=== PATIENT | female | born 1950 | race African-American/Black ===

== ENCOUNTER 2017-09-25 18:45 | Emergency (ER) | payer OTHER ==
[2017-09-25] MEDS ORDERED: TETANUS & DIPHTHERIA TOX,ADULT 0.5 ML VIAL ONE (19:35)
--- NOTE | 2017-09-25 20:14 | RAD REPORT ---
EXAM DESCRIPTION: CT - Head C Spine Mpr Wo Con - 09/25/2017 7:57 pm CLINICAL HISTORY: Head and neck injury status post fall. Head and neck pain COMPARISON: None. TECHNIQUE: Computed axial tomography of the head and cervical spine was obtained. Sagittal and coronal reconstruction was performed. All CT scans are performed using dose optimization technique as appropriate and may include automated exposure control or mA/KV adjustment according to patient size. FINDINGS: An intracranial bleed is not seen. The ventricles are normal in caliber. An extra-axial fl uid collection is not noted.Fluid within the visualized sinuses and mastoids is not seen A cervical fracture is not visualized. No dislocation is noted. 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 Moderate left foraminal stenosis is present at C4-5, C5-6 and C6-7 IMPRESSION: No acute intracranial abnormality is seen. A cervical fracture is not visualized. If the patient continues to have symptoms to suggest intracra nial /spinal cord pathology then MRI would be recommended
--- NOTE | 2017-09-25 20:15 | RAD REPORT ---
EXAM DESCRIPTION: RAD - Pelvis - 09/25/2017 7:46 pm CLINICAL HISTORY: Pelvic pain status post injury FINDINGS: No fracture or dislocation is seen. The bones appear osteoporotic If the patient continues to have symptoms to suggest an occult fracture then MRI would be recommended
--- NOTE | 2017-09-25 20:17 | RAD REPORT ---
EXAM DESCRIPTION: RAD - Knee Left 3 View - 09/25/2017 7:49 pm CLINICAL HISTORY: Left knee pain status post injury FINDINGS: No fracture or dislocation is seen. Chondrocalcinosis is present
--- NOTE | 2017-09-25 20:23 | EDPHYS ---
Physician Documentation [facility] Name: Angelita Babin Age: 67 yrs Sex: Female : 1950 Arrival Date: 09/25/2017 Time: 18:46 Bed 19 Private MD: Out, [facility] ED Physician Geovani Waddell HPI: 09/25 20:00 This 67 yrs old Black Female presents to ER via Ambulatory with complaints of Fall gs Injury. 20:00 Details of fall: The patient fell from an upright position, while walking. Onset: The gs symptoms/episode began/occurred acutely, just prior to arrival. Associated injuries: The patient sustained injury to the head, laceration, 2 cm(s), of the lower lip inner. Associated injuries: The patient sustained injury to the head, abrasion, left leg. Severity of symptoms: At their worst the symptoms were moderate. The patient has not experienced similar symptoms in the past. Historical: - Allergies: 18:58 Ampicillin; hb - Home Meds: 18:58 None [Active]; hb - PMHx: 18:58 None; hb - Immunization history:: Adult Immunizations up to date. - Social history:: Smoking status: Patient/guardian denies using tobacco. - Ebola Screening: : No symptoms or risks identified at this time. ROS: 20:00 All other systems are negative. gs 20:00 Neuro: Positive for loss of consciousness. gs Exam: 20:00 Eyes: Pupils equal round and reactive to light, extra-ocular motions intact. Lids and gs lashes normal. Conjunctiva and sclera are non-icteric and not injected. Cornea within normal limits. Periorbital areas with no swelling, redness, or edema. ENT: Nares patent. No nasal discharge, no septal abnormalities noted. Tympanic membranes are normal and external auditory canals are clear. Oropharynx with no redness, swelling, or masses, exudates, or evidence of obstruction, uvula midline. Mucous membranes moist. Neck: Trachea midline, no thyromegaly or masses palpated, and no cervical lymphadenopathy. Supple, full range of motion without nuchal rigidity, or vertebral point tenderness. No Meningismus. Chest/axilla: Normal chest wall appearance and motion. Nontender with no deformity. No lesions are appreciated. Cardiovascular: Regular rate and rhythm with a normal S1 and S2. No gallops, murmurs, or rubs. Normal PMI, no JVD. No pulse deficits. Respiratory: Lungs have equal breath sounds bilaterally, clear to auscultation and percussion. No rales, rhonchi or wheezes noted. No increased work of breathing, no retractions or nasal flaring. Abdomen/GI: Soft, non-tender, with normal bowel sounds. No distension or tympany. No guarding or rebound. No evidence of tenderness throughout. Skin: Warm, dry with normal turgor. Normal color with no rashes, no lesions, and no evidence of cellulitis. Neuro: Awake and alert, GCS 15, oriented to person, place, time, and situation. Cranial nerves II-XII grossly intact. Motor strength 5/5 in all extremities. Sensory grossly intact. Cerebellar exam normal. Normal gait. 20:00 Constitutional: The patient appears alert, awake. 20:00 Head/face: Noted is abrasion(s), that are mild, of the chin, a laceration(s), that is superficial, 2 cm(s), of the lower lip inner. 20:00 Musculoskeletal/extremity: ROM: limited active range of motion due to pain, limited passive range of motion due to pain, Circulation is intact in all extremities. Joints: the left hip and left knee displays tenderness. Vital Signs: 18:56 BP 111 / 77; Pulse 70; Resp 16; Temp 97.7; Pulse Ox 100% on R/A; Weight 98.43 kg; hb Height 5 ft. 7 in. (170.18 cm); Pain 10/10; 20:51 BP 119 / 66; Pulse 78; Resp 16 S; Pulse Ox 100% on R/A; jd3 18:56 Body Mass Index 33.99 (98.43 kg, 170.18 cm) hb [place] Coma Score: 18:56 Eye Response: spontaneous(4). Verbal Response: oriented(5). Motor Response: obeys hb commands(6). Total: 15. Trauma Score (Adult): 18:56 Eye Response: spontaneous(1); Verbal Response: oriented(1); Motor Response: obeys hb commands(2); Systolic BP: > 89 mm Hg(4); Respiratory Rate: 10 to 29 per min(4); Ke Score: 15; Trauma Score: 12 MDM: 19:26 Patient medically screened. 20:20 Differential diagnosis: contusion, fracture, laceration. Data reviewed: vital signs, nurses notes, radiologic studies, CT scan, plain films. Response to treatment: the patient's symptoms have mildly improved after treatment, and as a result, I will discharge patient. 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 Exp: jd3 11/23/2019. Lot #: [id number]. } Route: IM; Site: left deltoid; 20:20 Follow up: Response: No adverse reaction jd3 Disposition: 09/25/17 20:22 Discharged to Home. Impression: Concussion, Laceration without foreign body of other part of head, Abrasion of knee, Sprain of unspecified site of knee. - Condition is Stable. - Discharge Instructions: Laceration Care, Adult, [id number], Concussion, Adult, [id number]. - Prescriptions for Tylenol- Codeine #4 300-60 mg Oral Tablet - take 1 tablet by ORAL route every 6 hours As needed; 6 tablet. - Medication Reconciliation Form, Thank You Letter, Antibiotic Education, Prescription Opioid Use form. - Follow up: Private Physician; When: 2 - 3 days; Reason: Re-evaluation by your physician. Signatures: Dispatcher [employer] EDRI Anne Mac RN RN hb Starr, Gregory, MD MD Darius Webster RN RN jd3 Corrections: (The following items were deleted from the chart) 20:52 20:22 09/25/2017 20:22 Discharged to Home. Impression: Concussion; Laceration without jd3 foreign body of other part of head; Abrasion of knee; Sprain of unspecified site of knee. Condition is Stable. Forms are Medication Reconciliation Form, Thank You Letter, Antibiotic Education, Prescription Opioid Use. Follow up: Private Physician; When: 2 - 3 days; Reason: Re-evaluation by your physician.
--- NOTE | 2017-09-25 20:23 | ER ---
Nurse's Notes [facility] Name: Angelita Babin Age: 67 yrs Sex: Female : 1950 Arrival Date: 09/25/2017 Time: 18:46 Bed 19 Private MD: Out, [facility] Diagnosis: Concussion;Laceration without foreign body of other part of head;Abrasion of knee;Sprain of unspecified site of knee Presentation: 09/25 18:54 Presenting complaint: Patient states: Tripped while walking on sidewalk, abrasions to hb chest and face, puncture to inner lip, pain and swelling to left knee, pain in left hip. Negative LOC. Does not take blood thinners. Care prior to arrival: None. Mechanism of Injury: Fall from standing position. Trauma event details: Injury occurred in the [facility], Injury occurred: on a street or highway. Injury occurred: September 25, 2017 Injury occurred at: 13:30. 18:54 Acuity: GLEN 4 hb 18:54 Method Of Arrival: Ambulatory 19:29 Transition of care: patient was not received from another setting of care. Onset of jd3 symptoms was September 25, 2017. Risk Assessment: Do you want to hurt yourself or someone else? Patient reports no desire to harm self or others. Initial Sepsis Screen: Does the patient meet any 2 criteria? No. Patient's initial sepsis screen is negative. Does the patient have a suspected source of infection? No. Patient's initial sepsis screen is negative. Trauma Activation: Not Applicable Physician: ED Physician; Name: ; Notified At: ; Arrived At: Physician: General Surgeon; Name: ; Notified At: ; Arrived At: Physician: Radiology; Name: ; Notified At: ; Arrived At: Physician: Respiratory; Name: ; Notified At: ; Arrived At: Physician: Lab; Name: ; Notified At: ; Arrived At: Historical: - Allergies: 18:58 Ampicillin; hb - Home Meds: 18:58 None [Active]; hb - PMHx: 18:58 None; hb - Immunization history:: Adult Immunizations up to date. - Social history:: Smoking status: Patient/guardian denies using tobacco. - Ebola Screening: : No symptoms or risks identified at this time. Screenin:29 Abuse screen: Denies threats or abuse. Nutritional screening: No deficits noted. jd3 Tuberculosis screening: No symptoms or risk factors identified. Fall Risk Fall in past 12 months (25 points). Ambulatory Aid- None/Bed Rest/Nurse Assist (0 pts). Gait- Weak (10 pts.). Mental Status- Oriented to own ability (0 pts). Total Daniels Fall Scale indicates No Risk (0-24 pts). Primary Survey: 18:56 A: Airway: patent. Breathing/Chest: Respiratory pattern: regular, Respiratory effort: hb spontaneous, unlabored, Chest inspection: symmetrical rise and fall of the chest. Circulation: Skin color: pink, Skin temperature: warm, dry. Disability Alert. Assessment: 19:23 General: Appears uncomfortable, Behavior is calm, cooperative, appropriate for age. jd3 Pain: Complains of pain in head, pelvis and left leg Pain does not radiate. Quality of pain is described as aching, sharp, tender, Pain began at 1330 today Is continuous. Neuro: Level of Consciousness is awake, alert, obeys commands, Oriented to person, place, time, situation, Appropriate for age Speech is normal, Pupils are PERRLA, Intact. Cardiovascular: Capillary refill < 3 seconds Patient's skin is warm and dry. Respiratory: Airway is patent Respiratory effort is even, unlabored, Respiratory pattern is regular, symmetrical, Breath sounds are clear bilaterally. GI: Abdomen is round Abd is soft and non tender X 4 quads. Patient currently denies abdominal pain. : No signs and/or symptoms were reported regarding the genitourinary system. EENT: No signs and/or symptoms were reported regarding the EENT system. Derm: Skin is intact, Skin is dry, Skin is normal, Skin temperature is warm. Musculoskeletal: Circulation, motion, and sensation intact. Range of motion: limited in left hip and left knee. Injury Description: Abrasion sustained to chest and left leg Laceration sustained to inside of bottom lip is 0.5 to 2.5 cm long, not bleeding, a small amount of bleeding noted at this time. Vital Signs: 18:56 BP 111 / 77; Pulse 70; Resp 16; Temp 97.7; Pulse Ox 100% on R/A; Weight 98.43 kg; hb Height 5 ft. 7 in. (170.18 cm); Pain 10/10; 20:51 BP 119 / 66; Pulse 78; Resp 16 S; Pulse Ox 100% on R/A; jd3 18:56 Body Mass Index 33.99 (98.43 kg, 170.18 cm) hb Ke Coma Score: 18:56 Eye Response: spontaneous(4). Verbal Response: oriented(5). Motor Response: obeys hb commands(6). Total: 15. Trauma Score (Adult): 18:56 Eye Response: spontaneous(1); Verbal Response: oriented(1); Motor Response: obeys hb commands(2); Systolic BP: > 89 mm Hg(4); Respiratory Rate: 10 to 29 per min(4); [place] Score: 15; Trauma Score: 12 ED Course: 18:46 Patient arrived in ED. sb2 18:47 Out, of Town is Private Physician. sb2 18:56 Triage completed. hb 19:06 Geovani Waddell MD is Attending Physician. gs 19:15 Darius Webster, RN is Primary Nurse. jd3 19:28 Patient has correct armband on for positive identification. Bed in low position. Call jd3 light in reach. Side rails up X2. 19:29 Arm band placed on. jd3 19:[address] cw1 19:46 X-ray completed. Portable x-ray completed in exam room. Patient tolerated procedure sw well. 19:46 Pelvis XRAY In Process Unspecified. EDMS 19:46 Knee Left 3 View XRAY In Process Unspecified. EDMS 19:57 CT Head C Spine In Process Unspecified. EDMS 20:50 No provider procedures requiring assistance completed. Patient did not have IV access jd3 during this emergency room visit. 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 Exp: jd3 11/23/2019. Lot #: [id number]. } Route: IM; Site: left deltoid; 20:20 Follow up: Response: No adverse reaction jd3 Outcome: 20:22 Discharge ordered by . gs 20:50 Discharged to home via wheelchair, with family. jd3 20:50 Condition: stable 20:50 Discharge instructions given to patient, family, Instructed on discharge instructions, follow up and referral plans. medication usage, Demonstrated understanding of instructions, follow-up care, medications, Prescriptions given X 1. 20:52 Patient left the ED. jd3 Signatures: Dispatcher [facility] Ana Redman cw1 Dee Andrea Heather, RN RN hb Starr, Gregory, MD MD gs Davies, Jonathon, RN RN jd3 Marii Armstrong sb2
== END 2017-09-25 20:52 | disposition home or self-care (01) ==
LOC: ER 18:45
DX: S06.0X0A Concussion without loss of consciousness, initial encounter (principal); S01.81XA Laceration without foreign body of other part of head, initial encounter; W01.0XXA Fall on same level from slipping, tripping and stumbling without subsequent striking against object, initial encounter; Y93.01 Activity, walking, marching and hiking; Y92.019 Unspecified place in single-family (private) house as the place of occurrence of the external cause; S80.212A Abrasion, left knee, initial encounter; S83.92XA Sprain of unspecified site of left knee, initial encounter
CPT/HCPCS: 70450; 72125; 72170; 90714; 99284